=== PATIENT | male | born 1965 | race Caucasian/White ===

== ENCOUNTER 2016-11-18 16:24 | Inpatient (IN) | payer OTHER ==
[~2016-11-18] VITALS: Ht 177.8 cm; Wt 83.0 kg
--- NOTE | 2016-11-18 16:24 | NUR ---
Patient BIBA ACLS, transferred to bed 3. RN evaluating patient at bedside.
[2016-11-18] MEDS ORDERED: HALOPERIDOL IM 5 MG/ML VIAL ONE (16:25)
[2016-11-18] MEDS ORDERED: LORazepam 2 MG/ML VIAL ONE (16:26)
[2016-11-18] MEDS ORDERED: diphenhydrAMINE 50 MG/ML VIAL ONE (16:27)
[2016-11-18 16:35] VITALS: BP 119/78
--- NOTE | 2016-11-18 16:35 | NUR ---
PATIENT KHANG PRESENTS TO ED WITH C/O ALTERED COMBATIVE, METH USE--PT WAS IN HIS APT BULDING WHEN FOUND ALTERED.PT NONVERBAL AT THIS TIME; SKIN IS PINK/WARM/DRY; AAOX4 WITH EVEN AND STEADY GAIT; LUNGS CLEAR BL; HR EVEN AND REGULAR; PT DENIES ANY FEVER, CP, SOB, OR COUGH AT THIS TIME; PATIENT STATES PAIN OF 0/10 AT THIS TIME; VSS; PATIENT POSITIONED FOR COMFORT; HOB ELEVATED; BEDRAILS UP X2; BED DOWN. ER MD MADE AWARE OF PT STATUS.
[2016-11-18] MEDS ORDERED: NACL 0.9% 4,000 ML IV ONE (16:45)
[2016-11-18 16:46] LABS: BASOPHILS # (AUTO) 0.1 K/uL (0.00-0.22); BASOPHILS % (AUTO) 1.3 % (0.0-2.0); EOSINOPHILS # (AUTO) 0.1 K/uL (0-0.4); EOSINOPHILS % (AUTO) 1.1 % (0.0-4.0); HEMATOCRIT 44.7 % (36-52); HEMOGLOBIN 14.9 g/dL (12.0-18.0); LYMPHOCYTES # (AUTO) 1.3 K/uL (2.0-11.5); LYMPHOCYTES % (AUTO) 12.1 % (20.5-51.1); MEAN CORPUSCULAR HEMOGLOBIN 28 pg (27-31); MEAN CORPUSCULAR HGB CONC 33 g/dL (33-37); MEAN CORPUSCULAR VOLUME 84 fL (80-94); MONOCYTES # (AUTO) 0.8 K/uL (0.8-1.0); MONOCYTES % (AUTO) 7.6 % (1.7-9.3); NEUTROPHILS # (AUTO) 8.7 K/uL (1.8-7.7); NEUTROPHILS % (AUTO) 77.9 % (42.2-75.2); PLATELET COUNT (AUTO) 385 K/uL (140-450); RED BLOOD CELL COUNT(AUTO) 5.33 MIL/uL (4.20-6.10); RED CELL DISTRIBUTION WIDTH 12.7 % (11.6-13.7)
[2016-11-18 16:57] LABS: ANION GAP 19.9 (8-16); CALCIUM 8.9 mg/dL (8.5-10.1); CARBON DIOXIDE 25.2 mmol/L (21-32); CHLORIDE 99 mmol/L (98-107); CREATININE 1.6 mg/dL (0.6-1.3); GFR ARICAN-AMERICAN 59 mL/min (>90); GFR NON ARICAN-AMERICAN 49 mL/min (>90); GLUCOSE 120 mg/dL (74-106); POTASSIUM 3.1 mmol/L (3.5-5.1); SODIUM SERUM 141 mmol/L (136-145); UREA NITROGEN, BLOOD 13 mg/dL (7-18)
[2016-11-18] MEDS ORDERED: diphenhydrAMINE 50 MG/ML VIAL IM ONE (17:00)
[2016-11-18] MEDS ORDERED: LORazepam 2 MG/ML VIAL IM ONE (17:00)
[2016-11-18] MEDS ORDERED: HALOPERIDOL IM 5 MG/ML VIAL IM ONE (17:00)
[2016-11-18 17:04] LABS: ALANINE AMINOTRANSFERASE 45 U/L (12-78); ALBUMIN 4.3 g/dL (3.4-5.0); ALCOHOL, BLOOD < 3 mg/dL (<3); ALKALINE PHOSPHATASE 74 U/L (46-116); ASPARTATE AMINOTRANSFERASE 48 U/L (15-37); SALICYLATE 2.8 mg/dL (2.8-20.0); TOTAL BILIRUBIN 0.8 mg/dL (0.0-1.0)
[2016-11-18 17:05] LABS: ACETAMINOPHEN < 0.5 ug/ml (10-30)
[2016-11-18 17:22] LABS: CREATINE KINASE, TOTAL 1391 U/L (39-308)
--- NOTE | 2016-11-18 18:01 | NUR ---
PT TAKEN TO CT VIA GURNEY BY BALL RACKER ERICKA
--- NOTE | 2016-11-18 18:11 | NUR ---
PT BACK FROM CT PLACE BACK ON MONITOR, PT STILL UNABLE TO FOLLOW COMMANDS
[2016-11-18 18:31] LABS: APPEARANCE,URINE CLEAR (CLEAR); BILIRUBIN,URINE NEGATIVE (NEGATIVE); BLOOD, URINE NEGATIVE (NEGATIVE); COLOR,URINE YELLOW (YELLOW); LEUKOCYTE ESTERASE ,URINE NEGATIVE (NEGATIVE); NITRITE, URINE NEGATIVE (NEGATIVE); PROTEIN,URINE 1+ (NEGATIVE); UGLUCOSE NEGATIVE (NEGATIVE); UROBILINOGEN,URINE 0.2 EU/dL (0.2 - 1)
[2016-11-18 18:37] LABS: AMPHETAMINE, URINE POS. ng/ml (NEG <=1000); BARBITURATE, URINE NEG. ng/ml (NEG <=200); BENZODIAZEPINE, URINE POS. ng/mL (NEG <=200); CANNABINOID, URINE NEG. ng/mL (NEG <=50); COCAINE, URINE NEG. ng/mL (NEG <=300); OPIATE, URINE NEG. ng/mL (NEG <=2000); PHENCYCLIDINE SCREEN,URINE NEG. ng/mL (NEG <=25)
[2016-11-18 18:52] LABS: BACTERIA,URINE FEW /HPF (None Seen); RBC,URINE NONE SEEN /HPF (0-5); SQUAMOUS EPITHELIAL CELL,UR None Seen /LPF (0-3 (FEW)); WBC,URINE 0-5 (RARE) /HPF (0-5)
--- NOTE | 2016-11-18 19:12 | NUR ---
REPORT GIVEN TO OLINDA JENKINS
--- NOTE | 2016-11-18 19:20 | NUR ---
Patient appears to be resting comfortably in bed. Vital Signs within normal limits. Respirations even and unlabored. Addendum: 11/18/16 at 2000 by TRAY Patient appears to be resting comfortably in bed. Vital Signs within normal limits. Respirations even and unlabored, SKIN IS INTACT
--- NOTE | 2016-11-18 19:54 | NUR ---
Pt report given to BELEN PRAKASH . Transfer of care at this time.
--- NOTE | 2016-11-18 19:55 | NUR ---
Patient will be admitted to care of DR MARTINO. Admited to ICU 5. Will go to room ICU 5. Belongings list completed. Report to BELEN PRAKASH .
--- NOTE | 2016-11-18 20:15 | NUR ---
PT ARRIVED ON UNIT FROM ER VIA GURNEY CONNECTED TO ALL MONITOR PT IS DROWSY, BUT ABLE TO FOLLOW TO ALL COMMANDS. PT IS ON ROOM AIR AND IS CURRENTLY SATURATING 100% WITH NO S/S OF RESPIRATORY DISTRESS NOTED. CARE TRANSITIONS MANAGER SHOWS SR AT THIS TIME. HAS IV IN LAC#20 CURRENTLY SALINE LOCKED. SKIN IS INTACT, WITH OLD SCAR NOTED ON LOWER BACK. PT SKIN IS WARM. BED IN LOW POSITION. HOB UP. CALL LIGHT LEFT WITHIN REACH. WILL CONTINUE TO MONITOR.
[2016-11-18 20:17] VITALS: BP 143/77
--- NOTE | 2016-11-18 20:30 | NUR ---
EMPTIED OUT 15OO ML OF CLEAR YELLOW URINE FROM ASTUDILLO CATHETER. PT IS ABLE TO FOLLOW COMMANDS SUCH TURNING AND MOVING EXTREMITIES, BUT IS UNABLE TO ANSWER QUESTIONS ABOUT PATIENT HISTORY DUE TO CURRENT CONDITION OF DROWSINESS.
[2016-11-18] MEDS ORDERED: ONDANSETRON 4 MG/2 ML VIAL IVP PRN (21:00)
[2016-11-18] MEDS ORDERED: ACETAMINOPHEN 325 MG TAB PO PRN (21:00)
[2016-11-18] MEDS ORDERED: ALBUTEROL 0.083% 2.5 MG/3 ML NEBU INH PRN (21:00)
--- NOTE | 2016-11-18 21:27 | NUR ---
RECEIVED PHONE CALL FROM WOMEN STATING TO BE THE PATIENT'S FIANCE. NO NEXT OF KIN IS LISTED ON PATIENT'S CHART AT THIS TIME. MOHIT JORDAN IS ON THE UNIT AND STATED FOR PATIENT TO VERIFY RELATIONSHIP OF CALLER BEFORE GIVING ANY INFORMATION OVER THE PHONE. WILL FOLLOW UP.
--- NOTE | 2016-11-18 21:28 | NUR ---
KAREY HILDA CALLED THE UNIT AND IS ASKING FOR UPDATE ABOUT PATIENT. KAREY STATES SHE IS PT'S FIANCE. ASKED PATIENT FOR VERIFICATION ABOUT KAREY'S RELATION TO PATIENT. PT COULD NOT GIVE CONFIRMATION AT THIS TIME DUE TO CURRENT CONDITION OF DROWSINESS. KAREY LEFT PHONE NUMBER AND STATED TO GIVE HER A CALL AT ANYTIME WHEN PATIENT CAN VERIFY HER RELATIONSHIP.
[2016-11-18] MEDS: NACL 0.9% 1,000 ML IV SCH (21:47)
--- NOTE | 2016-11-18 21:56 | NUR ---
PT HAD MODERATE AMOUNT OF BROWN BM AT THIS TIME. PT CLEANED, GOWN CHANGED. WILL CONTINUE TO CLOSELY MONITOR
[2016-11-18 22:00] VITALS: BP 142/84
[2016-11-19] VITALS (8 sets, daily range): BP systolic 111–173; BP diastolic 66–97
--- NOTE | 2016-11-19 00:24 | NUR ---
PT RESTING IN BED. NO SOB NOTED AT THIS TIME. WILL CONTINUE TO CLOSELY MONITOR.
--- NOTE | 2016-11-19 02:41 | NUR ---
PT LEADS CHANGED DUE TO BEING UNABLE TO READ PROPERLY ON MONITOR. NO SOB NOTED AT THIS TIME. SAFETY PRECAUTIONS STILL MAINTAINED. CALL LIGHT LEFT WITHIN REACH. WILL CONTINUE TO CLOSELY MONITOR.
--- NOTE | 2016-11-19 04:40 | NUR ---
PT RESTING IN BED. NO SOB NOTED AT THIS TIME. WILL CONTINUE TO CLOSELY MONITOR.
[2016-11-19 05:06] LABS: BASOPHILS # (AUTO) 0.1 K/uL (0.00-0.22); BASOPHILS % (AUTO) 1.5 % (0.0-2.0); EOSINOPHILS # (AUTO) 0.1 K/uL (0-0.4); EOSINOPHILS % (AUTO) 1.1 % (0.0-4.0); HEMATOCRIT 43.3 % (36-52); HEMOGLOBIN 14.7 g/dL (12.0-18.0); LYMPHOCYTES # (AUTO) 2.1 K/uL (2.0-11.5); LYMPHOCYTES % (AUTO) 23.7 % (20.5-51.1); MEAN CORPUSCULAR HEMOGLOBIN 28 pg (27-31); MEAN CORPUSCULAR HGB CONC 34 g/dL (33-37); MEAN CORPUSCULAR VOLUME 83 fL (80-94); MONOCYTES % (AUTO) 11.4 % (1.7-9.3); NEUTROPHILS # (AUTO) 5.5 K/uL (1.8-7.7); NEUTROPHILS % (AUTO) 62.3 % (42.2-75.2); PLATELET COUNT (AUTO) 309 K/uL (140-450); RED BLOOD CELL COUNT(AUTO) 5.22 MIL/uL (4.20-6.10); RED CELL DISTRIBUTION WIDTH 13.3 % (11.6-13.7); WHITE BLOOD COUNT (AUTO) 8.8 K/uL (4.8-10.8)
--- NOTE | 2016-11-19 07:25 | NUR ---
RECEIVED REPORT FROM PM SHIFT CHARGE NURSE AT BEDSIDE. PT ASLEEP AT THIS TIME. AROUSED BY VOICE. AWAKE AND ALERT TO NAME, TIME, DATE, AND SITUATION. BREATHING EVEN & UNLABORED. NO ACUTE DISTRESS NOTED. LEFT AC #20G IV ACCESS INTACT AND PATENT WITH NS INFUSING @ 100 ML/HR. ASTUDILLO CATH IN PLACE WITH YELLOW COLORED 200 CC URINE TO GRAVITY. ABDOMEN SOFT, NON DISTENDED WITH ACTIVE BOWEL SOUNDS IN ALL 4 QUADRANTS. INTACT SKIN. OLD SCAR ON THE LOWER BACK NOTED. PLAN OF CARE DISCUSSED WITH PT AND VERBALIZED UNDERSTANDING. ALL SAFETY MEASURES MAINTAINED. CALL LIGHT WITHIN REACH.
[2016-11-19] MEDS: NACL 0.9% 1,000 ML IV SCH ×3 (07:48→20:12)
--- NOTE | 2016-11-19 07:49 | NUR ---
PATIENT HAS BEEN SCREENED AND CATEGORIZED MODERATE NUTRITION RISK. PATIENT WILL BE SEEN WITHIN 3-5 DAYS OF ADMISSION. 11/21/16-11/23/[address]
[2016-11-19 08:44] LABS: ANION GAP 14.3 (8-16); CALCIUM 7.9 mg/dL (8.5-10.1); CARBON DIOXIDE 24.2 mmol/L (21-32); CREATININE 0.9 mg/dL (0.6-1.3); POTASSIUM 3.5 mmol/L (3.5-5.1)
--- NOTE | 2016-11-19 09:45 | NUR ---
CALLED DR. GUERIN AND INFORMED TO DR. GUERIN REGARDING TO PT'S CURRENT CLINICAL STATUS. RECEIVED ORDERS AND CARRIED OUT. PER DR. GUERIN, HE WILL SEE PT TODAY.
--- NOTE | 2016-11-19 10:30 | NUR ---
EMPTIED 300 CC URINE FROM ASTUDILLO CATHETER. DC'D F/C ORDERED AND TOLERATED WELL BY PT. TIP OF ASTUDILLO CATH INTACT AND NO BLEEDING NOTED. CALL LIGHT WITHIN REACH.
--- NOTE | 2016-11-19 12:35 | NUR ---
DR. GUERIN IN TO SEE PT. UPDATED TO WITH PT'S CURRENT STATUS. WILL FOLLOW UP WITH ORDERS.
--- NOTE | 2016-11-19 13:43 | NUR ---
PAGED DR. GUERIN FOR HOLDING DISCHARGE ORDER. PER DIRECTOR OF SURGERY, NORA, PT IS HAVING SUICIDAL THOUGHTS AND HAS A PLAN OF TAKING PAIN PILLS AND SLEEPING PILLS WHEN D/C HOME TODAY. AWAITED FOR CALL BACK.
--- NOTE | 2016-11-19 13:57 | NUR ---
FAXED INITIAL REVIEW TO [facility] [phone] PHONE AHNSEL [phone] [id number]
--- NOTE | 2016-11-19 14:10 | NUR ---
DR. TORRES CALLED BACK AND EXPLAINED TO DR. TORRES ABOUT PT'S SUICIDAL THOUGHTS. RECEIVED ORDER FOR PSYCH EVALUATION.
--- NOTE | 2016-11-19 15:00 | NUR ---
DR. BARTON AWARE PSYCH CONSULT.
[2016-11-19] MEDS: MORPHINE SULFATE 4 MG/ML SYR IVP PRN (16:05)
--- NOTE | 2016-11-19 16:10 | NUR ---
DR. JACKSON INTERVIEWED PT AT BEDSIDE.
--- NOTE | 2016-11-19 18:00 | NUR ---
PT EATING DINNER AT THIS TIME. NO C/O PAIN OR DISCOMFORT NOTED. ALL NEEDS MET. CALL LIGHT WITHIN REACH.
--- NOTE | 2016-11-19 19:05 | NUR ---
REPORT GIVEN TO ABSORBER OPERATOR RN FOR CONTINUITY OF CARE.
--- NOTE | 2016-11-19 20:00 | NUR ---
AAOX4, SR ON THE MONITOR, ON ROOM AIR, IVF NS 100 ML/HR, IV SITE ON RFA G#22, VOIDING WITHOUT DIFFICULTIES. SKIN INTACT, DENIES PAIN. PATIENT VERY PLEASANT AND COOPERATIVE WITH CARE.
[2016-11-19] MEDS: LORazepam 2 MG/ML VIAL IVP PRN (20:57)
--- NOTE | 2016-11-19 22:00 | NUR ---
PATIENT SLEEPING, SR ON THE MONITOR, MONITORED CLOSELY.
--- NOTE | 2016-11-20 | NUR ---
PATIENT RESTING WELL, CONTINUE TO MONITOR CLOSELY, DENIES PAIN, REFUSED BP AND PULSE OXIMETER READING.
[2016-11-20] MEDS: LORazepam 2 MG/ML VIAL IVP PRN (01:22)
[2016-11-20 01:24] VITALS: BP 114/76
[2016-11-20 04:00] VITALS: BP 120/82
--- NOTE | 2016-11-20 04:08 | NUR ---
RECEIVED REPORT FROM BHUMIKA/ICU FORMER HAND TO TRANSFER PATIENT TO [facility], CALLED [facility] AND GAVE REPORT TO OLINDA PATINO. PATIENT INFORMED THAT HE WILL BE TRANSFERRED TO [facility]. DENIES PAIN, VS STABLE.
--- NOTE | 2016-11-20 04:20 | NUR ---
PATIENT WAS TRANSFERRED TO [address] AT THIS TIME, ENDORSED PATIENT TO CAREY/RN WITH ALL OF PATIENT'S BELONGINGS. PATIENT IN STABLE CONDITION.
[2016-11-20 04:22] VITALS: BP 123/75
--- NOTE | 2016-11-20 04:22 | NUR ---
PT ARRIVED ON UNIT IN STABLE CONDITION WITH ALL BELONGINGS. NO SOB, NO SIGNS OF DISTRESS. PT IS AOX4, AMBULATORY, SPEAKS SAMI. PT HAS NO THOUGHTS OF HARMING HIMSELF OR OTHERS AT THIS TIME. SKIN IS INTACT. 1:1 SITTER AT BEDSIDE. VS STABLE ON ROOM AIR. IV TO RT FA 22G PATENT, ASYMPTOMATIC, INTACT, IVF RUNNING. PT DENIES PAIN AT THIS TIME. ORIENTED PT TO ROOM AND UNIT. PLAN OF CARE DISCUSSED WITH PT. SAFETY MEASURES IN PLACE. CALL LIGHT WITHIN REACH. WILL CONTINUE TO MONITOR.
--- NOTE | 2016-11-20 07:30 | NUR ---
RECEIVED PT IN BED, ASLEEP. BREATHING EVEN AND UNLABORED. NO SIGNS AND SYMPTOMS OF ACUTE DISTRESS. SAFETY PRECAUTION IN PLACE. CALL LIGHT WITHIN REACH.
--- NOTE | 2016-11-20 07:30 | NUR ---
ENDORSED PT IN STABLE CONDITION TO CARLEEN Ryan RN. ALL NEEDS HAVE BEEN MET AT THIS TIME.
[2016-11-20 08:00] VITALS: BP 122/75
[2016-11-20] MEDS: MORPHINE SULFATE 4 MG/ML SYR IVP PRN (09:20)
--- NOTE | 2016-11-20 09:46 | NUR ---
SS NOTE: SENT PSYCH PLACEMENT INQUIRIES TO: - [facility] - [facility] - [facility]
--- NOTE | 2016-11-20 09:55 | NUR ---
PT ABLE TO DO ADL'S INDEPENDENTLY. ACTIVITY TOLERATED WELL. PT STATED HE IS NOT ANYMORE THINKING OF HARMING HIMSELF OR OTHERS. NO SUICIDAL THOUGHTS NOTED AT THIS TIME. WILL CONTINUE TO MONITOR.
--- NOTE | 2016-11-20 10:10 | NUR ---
AJIT FROM [facility] ([facility]) CALLED AND ASKED WHO WROTE THE 5150 HOLD ON PT'S CHART. AJIT STATED SHE WILL CALL BACK IF THEY DECIDE TO TAKE THE PT.
--- NOTE | 2016-11-20 11:00 | NUR ---
PT VERBALIZED HE IS READY TO GO HOME AND WOULD LIKE TO SIGN AGAINST MEDICAL FORM. RISKS AND BENEFITS EXPLAINED TO PT, VERBALIZED UNDERSTANDING. ELGIN DIRECTOR OF CASE MANAGEMENT MADE AWARE AND SPOKE WITH PT.
--- NOTE | 2016-11-20 11:05 | NUR ---
PAGED DR. MARTINO TO MAKE HIM AWARE OF PT'S DECISION TO GO AMA, AWAITING FOR CALL BACK FROM HYDROGRAPHICAL TECHNICAL OFFICER DR. GUERIN.
--- NOTE | 2016-11-20 11:10 | NUR ---
PT SIGNED AGAINST MEDICAL ADVICE FORM, RISKS AND BENEFITS EXPLAINED, PT VERBALIZED UNDERSTANDING.
--- NOTE | 2016-11-20 11:15 | NUR ---
ARM BANDS AND IV REMOVED, CANNULA TIP INTACT. PLANTING MATERIAL UNLOADER NURSE AND ICT QUALITY ASSURANCE ENGINEER MADE AWARE.
--- NOTE | 2016-11-20 11:25 | NUR ---
PT ESCORTED OUT IN STABLE CONDITION BY BY SOLID STATE TESTER. PT AMBULATORY. NO SOB NOTED. NO C/O PAIN AT THIS TIME. NO SUICIDAL IDEATION NOTED. PT IS DISCHARGED AGAINST MEDICAL ADVICE.
--- NOTE | 2016-11-20 12:02 | NUR ---
1100 MET WITH PT AND HE STATED THAT HE WANTS TO GO HOME. PT CALM AND STATED THAT HE DID NOT WANT TO HARM HIMSELF AND SAID THAT HE ONLY MADE THE STATEMENT IN RETALIATION AFTER HE AND HIS GIRLFRIEND GOT INTO AN ARGUMENT. DISCUSSED WITH PT THAT STAFF MUST REPORT IF ANYONE VERBALIZES SUICIDAL IDEATION AND THAT IT IS TAKEN SERIOUSLY. PT DID APOLOGIZE AND STATED THAT HE UNDERSTANDS THAT IT WAS WRONG OF HIM TO DO SO. ASKED PT IF HE HAS HAD ANY TYPE OF COUNSELING AND HE INDICATED THAT HE DID HAVE AN APPT TO SEE A COUNSELING SERVICE BUT NEVER GOT TO SEE ANYONE THE PERSON HE WAS SCHEDULED TO SEE WAS NO LONGER THERE. HE STATED THAT THE ADDRESS WAS ON [address] IN [place] AND THAT HE STILL HAD THE CARD AND WOULD MAKE A FOLLOW UP CALL. AT THIS TIME THERE IS NO ACTUAL 5150 WRITTEN AND PT HAS OPTED TO SIGN AMA RATHER THAN WAIT FOR RE-EVALUATION BY PSYCHOLOGIST.
--- NOTE | 2016-11-20 13:00 | NUR ---
DR. GUERIN IS HERE MAKING ROUNDS AND MADE AWARE OF PT WENT AMA.
--- NOTE | 2016-11-20 14:11 | NUR ---
CM NOTE CONCURRENT REVIEW FAXED TO [facility] / FAX# [phone], ATTN: HANSEL #[phone] [id number]
== END 2016-11-20 11:25 | disposition left against medical advice (07) | DRG 812 ==
LOC: MED 16:24 → MIC 19:17 → MTU 11-20 04:25
PROVIDERS: ADMIT Internal Medicine Pulmonary Disease; ATTEND Internal Medicine Pulmonary Disease
DX: T43.621A Poisoning by amphetamines, accidental (unintentional), initial encounter (principal); G93.41 Metabolic encephalopathy; N17.9 Acute kidney failure, unspecified; M62.82 Rhabdomyolysis; F33.2 Major depressive disorder, recurrent severe without psychotic features; F17.210 Nicotine dependence, cigarettes, uncomplicated; F15.20 Other stimulant dependence, uncomplicated; E86.0 Dehydration; Z53.21 Procedure and treatment not carried out due to patient leaving prior to being seen by health care provider; R45.851 Suicidal ideations; R44.3 Hallucinations, unspecified; Z56.0 Unemployment, unspecified; Y92.89 Other specified places as the place of occurrence of the external cause
CPT/HCPCS: 36415; 51702; 70450; 71010; 80048; 80053; 80305; 81001; 82550; 82553; 82948; 83735; 85025; 87081; 93005; 96360; 96361; 96372; 99285; G0480; G0482; J1200; J1630; J2060; J2270; J7030; Q0092

== ENCOUNTER 2017-04-24 16:29 | Emergency (ER) | payer OTHER ==
[~2017-04-24] VITALS: Ht 177.8 cm; Wt 80.3 kg
[2017-04-24 16:30] VITALS: BP 136/74
[2017-04-24] MEDS ORDERED: NACL 0.9% 1,000 ML IV ONE (16:30)
--- NOTE | 2017-04-24 16:31 | NUR ---
Pt placed in bed 7 by EMS.
[2017-04-24 16:45] LABS: BASOPHILS # (AUTO) 0.1 K/uL (0.00-0.22); BASOPHILS % (AUTO) 1.4 % (0.0-2.0); EOSINOPHILS # (AUTO) 0.1 K/uL (0-0.4); EOSINOPHILS % (AUTO) 1.1 % (0.0-4.0); HEMATOCRIT 45.5 % (36-52); HEMOGLOBIN 14.7 g/dL (12.0-18.0); LYMPHOCYTES # (AUTO) 2.2 K/uL (2.0-11.5); LYMPHOCYTES % (AUTO) 33.8 % (20.5-51.1); MEAN CORPUSCULAR HEMOGLOBIN 27 pg (27-31); MEAN CORPUSCULAR HGB CONC 32 g/dL (33-37); MEAN CORPUSCULAR VOLUME 83 fL (80-94); MONOCYTES # (AUTO) 0.3 K/uL (0.8-1.0); MONOCYTES % (AUTO) 5.1 % (1.7-9.3); NEUTROPHILS # (AUTO) 3.7 K/uL (1.8-7.7); NEUTROPHILS % (AUTO) 58.6 % (42.2-75.2); PLATELET COUNT (AUTO) 361 K/uL (140-450); RED BLOOD CELL COUNT(AUTO) 5.48 MIL/uL (4.20-6.10); RED CELL DISTRIBUTION WIDTH 15.2 % (11.6-13.7); WHITE BLOOD COUNT (AUTO) 6.4 K/uL (4.8-10.8)
[2017-04-24] MEDS ORDERED: GABA300C PO (16:46)
[2017-04-24] MEDS ORDERED: ALPR1TAB2 PO (16:46)
[2017-04-24] MEDS ORDERED: OXYC40TE66 PO (16:46)
[2017-04-24] MEDS ORDERED: ZOLP10TA1 PO (16:46)
[2017-04-24] MEDS ORDERED: KETO75CA PO (16:46)
[2017-04-24] MEDS ORDERED: SERT50TA PO (16:46)
[2017-04-24] MEDS ORDERED: BUS5 PO (16:46)
[2017-04-24] MEDS ORDERED: LANS15EC28 PO (16:46)
[2017-04-24] MEDS ORDERED: BACL10TA4 PO (16:46)
[2017-04-24] MEDS ORDERED: QUET100T PO (16:46)
--- NOTE | 2017-04-24 16:47 | NUR ---
51/M heidya from home for evaluation of suicidal ideation and attempt. Per EMS, patient took unknown amount of ambien and xanax. Pt states "I'm tired of being in pain. I don't want to be alive in pain anymore." Pt was placed on a 5150 for danger to self. Pt is AOX4, slurred speech, obeys commands, follows instructions. Calm and cooperative at this time. Hx chronic back pain, ambulates with a front wheel walker. Pt states he lives at home with "roomate/girlfriend." Pt placed into a gown, placed on biomedical engineer, pulse oximetry and blood pressure monitoring. All belongings placed into a belongings bag and set aside. VSS.
[2017-04-24 17:02] LABS: ACETAMINOPHEN < 0.5 ug/ml (10-30); ALBUMIN 3.6 g/dL (3.4-5.0); ANION GAP 14.6 (8-16); ASPARTATE AMINOTRANSFERASE 26 U/L (15-37); CARBON DIOXIDE 25.1 mmol/L (21-32); CHLORIDE 112 mmol/L (98-107); CREATININE 0.9 mg/dL (0.7-1.3); GFR ARICAN-AMERICAN 115 mL/min (>90); GLUCOSE 95 mg/dL (74-106); POTASSIUM 3.7 mmol/L (3.5-5.1); SALICYLATE 4.2 mg/dL (2.8-20.0); SODIUM SERUM 148 mmol/L (136-145); TOTAL BILIRUBIN 0.2 mg/dL (0.0-1.0); UREA NITROGEN, BLOOD 14 mg/dL (7-18)
--- NOTE | 2017-04-24 17:20 | NUR ---
Patient appears to be resting comfortably in bed. VSS.
--- NOTE | 2017-04-24 17:41 | NUR ---
Security at bedside for belongings check. Belongings taken by Ramone in security.
--- NOTE | 2017-04-24 17:47 | NUR ---
Pt unable to void at this time. Dr. Castillo verbal order for straight cath insertion.
--- NOTE | 2017-04-24 18:00 | NUR ---
# 14 FR IN AND OUT catheter utilizing sterile technique. Immediate return of 100 ml DARK YELLOW urine noted. Bedside drainage bag placed below level of bladder. Urine sample collected and sent to lab. Pt tolerated procedure WELL.
--- NOTE | 2017-04-24 18:17 | NUR ---
Pt resting comfortably. No distress noted. VSS. Pt lying right side lateral.
[2017-04-24 18:25] LABS: APPEARANCE,URINE CLEAR (CLEAR); BILIRUBIN,URINE NEGATIVE (NEGATIVE); BLOOD, URINE NEGATIVE (NEGATIVE); COLOR,URINE YELLOW (YELLOW); LEUKOCYTE ESTERASE ,URINE NEGATIVE (NEGATIVE); NITRITE, URINE NEGATIVE (NEGATIVE); UGLUCOSE NEGATIVE (NEGATIVE)
[2017-04-24 18:33] LABS: BARBITURATE, URINE NEG. ng/ml (NEG <=200); BENZODIAZEPINE, URINE POS. ng/mL (NEG <=200); CANNABINOID, URINE NEG. ng/mL (NEG <=50); COCAINE, URINE NEG. ng/mL (NEG <=300); OPIATE, URINE NEG. ng/mL (NEG <=2000); PHENCYCLIDINE SCREEN,URINE NEG. ng/mL (NEG <=25)
--- NOTE | 2017-04-24 18:53 | NUR ---
Pt resting comfortably, sleeping. No distress noted. VSS.
--- NOTE | 2017-04-24 19:32 | NUR ---
Pt calm and relaxex, resting comfortably. Lying supine. VSS. Warm blanket provided. All needs addressed.
--- NOTE | 2017-04-24 20:35 | NUR ---
Pt had a bowel movement, loose stool, yellow brown in color. [place] care performed. New sheets applied to bed and a new gown placed on patient. Pt tolerated well. VSS.
--- NOTE | 2017-04-24 20:45 | NUR ---
Water provided. All needs addressed.
[2017-04-24] MEDS ORDERED: KETOROLAC 30 MG/ML VIAL IVP ONE (20:50)
--- NOTE | 2017-04-24 21:23 | NUR ---
Patientr resting comfortably in bed. VSS.
--- NOTE | 2017-04-24 22:39 | NUR ---
Nurse to nurse report given to Krystyna at [facility]. Krystyna RN to speak with supervisor blast furnace auxiliaries and will call back.
--- NOTE | 2017-04-24 23:23 | NUR ---
Krystyna from [facility] called back, accepting physician is Dr. Guzman. Krystyna is requesting to have patient be picked up 0600 and transferred.
[2017-04-24] MEDS ORDERED: MORPHINE SULFATE 4 MG/ML SYR IVP ONE (23:30)
--- NOTE | 2017-04-24 23:36 | NUR ---
Pt updated about his status being transferred to [facility] at 0600. I also advised the patient his gf called. Pt verbalized understanding.
--- NOTE | 2017-04-24 23:49 | NUR ---
Patient resting comfortably in bed. VSS. Warm blanket provided. Pt offered food. Pt states "Maybe later." Lights dimmed in room.
--- NOTE | 2017-04-24 23:52 | NUR ---
Pt requesting meal tray. church supervisor called for tray.
--- NOTE | 2017-04-25 01:09 | NUR ---
Pt report given to Cliff PRAKASH. Transfer of care at this time.
--- NOTE | 2017-04-25 01:09 | NUR ---
Patient appears to be resting comfortably in bed. Vital Signs within normal limits. Respirations even and unlabored.
--- NOTE | 2017-04-25 02:07 | NUR ---
Patient appears to be resting comfortably in bed. Vital Signs within normal limits. Respirations even and unlabored.
[2017-04-25] MEDS ORDERED: MORPHINE SULFATE 4 MG/ML SYR IVP ONE (02:30)
--- NOTE | 2017-04-25 03:08 | NUR ---
Patient appears to be resting comfortably in bed. Vital Signs within normal limits. Respirations even and unlabored.
--- NOTE | 2017-04-25 04:02 | NUR ---
Patient appears to be resting comfortably in bed. Vital Signs within normal limits. Respirations even and unlabored.
--- NOTE | 2017-04-25 05:07 | NUR ---
Patient appears to be resting comfortably in bed. Vital Signs within normal limits. Respirations even and unlabored.
--- NOTE | 2017-04-25 06:04 | NUR ---
Patient appears to be resting comfortably in bed. Vital Signs within normal limits. Respirations even and unlabored.
--- NOTE | 2017-04-25 06:15 | NUR ---
TRANSPORT WILL BE DELAYED BY 69 MINS
--- NOTE | 2017-04-25 07:02 | NUR ---
Pt report given to GARY. Transfer of care at this time.
--- NOTE | 2017-04-25 07:05 | NUR ---
RECEIVED REPORT FROM OLINDA JENKINS. Patient appears to be resting comfortably in bed. Vital Signs within normal limits. Respirations even and unlabored.WILL CONTINUE TO MONITOR.
--- NOTE | 2017-04-25 07:15 | NUR ---
Note christofer in EDM - 04/25/17 at 0716 by TRAY RECEIVED REPORT FROM OLINDA JENKINS. Patient appears to be resting comfortably in bed. Vital Signs within normal limits. Respirations even and unlabored.WILL CONTINUE TO MONITOR.
[2017-04-25] MEDS ORDERED: KETOROLAC 60 MG/2 ML VIAL IM ONE ×2 (07:25→07:36)
--- NOTE | 2017-04-25 07:28 | NUR ---
[facility] HERE TO HUMAN CAPITAL ANALYST PATIENT.
--- NOTE | 2017-04-25 07:38 | NUR ---
Patient to be transferred to [facility]. Is being transferred due to HIGH LEVEL. Receiving facility has accepting physician and available space. ER physician has signed transfer form. Patient or responsible republican has agreed to transfer and signed form. Patient belongings inventoried and will be sent with patient. Copy of nursing notes, lab reports, EKG, Physicians Orders and X-rays to be sent with patient. Report called to OLINDA ROJAS at receiving facility. EMT ambulance service has been called for transfer.
[2017-04-25 07:39] VITALS: BP 137/88
== END 2017-04-25 07:38 ==
LOC: MED 16:29
DX: F10.129 Alcohol abuse with intoxication, unspecified (principal); R45.851 Suicidal ideations; T65.91XA Toxic effect of unspecified substance, accidental (unintentional), initial encounter; Y92.89 Other specified places as the place of occurrence of the external cause; F32.9 Major depressive disorder, single episode, unspecified
CPT/HCPCS: 36415; 80053; 80305; 81003; 85025; 93005; 96361; 96374; 96375; 96376; 99285; C1758; G0480; G0482; J1885; J2270; J7030

== ENCOUNTER 2017-10-19 17:45 | Inpatient (IN) | payer MEDICAID, OTHER ==
[~2017-10-19] VITALS: Ht 175.3 cm; Wt 81.6 kg
[2017-10-19 17:45] VITALS: BP 123/80
[~2017-10-19 17:45] MED LIST: ALPR1TAB2 PO; BACL10TA4 PO; BUS5 PO; GABA300C PO; KETO75CA PO; LANS15EC28 PO; OXYC40TE66 PO; QUET100T PO; SERT50TA PO; ZOLP10TA1 PO
--- NOTE | 2017-10-19 17:45 | NUR ---
52M BIBA FROM HOME C/O HALLUCINATIONS X TODAY; PT STATES " PLEASE HELP ME. ANIMALS ARE TRYING TO KILL ME"; PER [facility], PT CALLED 911 FROM HOME NEEDING HELP; ASKED PT IF HE HAS ANY IDEAS OF HURTING SELF OR OTHERS, PT STATES "NO" AT THIS TIME. PT C/O ACHING BODY ACHES TO "MY WHOLE BODY", 06/03 AT THIS TIME; PT STATES FIRST NAME BUT STATES, BUT UNABLE TO VERBALIZE BIRTHDAY AT THIS TIME; UNABLE TO ASSESS PUPILS, PT CLOSING EYES AND STATES "DON'T TOUCH ME" AT THIS TIME; PT STATES " AM I GOING TO A BED YET" WHILE CLOSING EYES; HX: METH USE; PT POSITIONED COMFORTABLY IN [facility], EVEN/UNLABORED AT THIS TIME; ER MD MADE AWARE OF STATUS. WILL CONTINUE TO MONITOR.
--- NOTE | 2017-10-19 18:49 | NUR ---
PT BIBA TO BED 1.
--- NOTE | 2017-10-19 18:57 | NUR ---
SAVANNAH NICOLAS AT BEDSIDE.
--- NOTE | 2017-10-19 18:58 | NUR ---
PT PLACED ON MONITOR; POSITIONED FOR COMFORT WITH HOB ELEVATED AND IN LOWEST POSITION; PT NOT RESPONDING TO VERBAL OR PAINFUL STIMULI, PT APPEARS TO BE SLEEPING AT THIS TIME; RR EVEN/UNLABORED; ER MD DR. NICOLAS NOTIFIED. WILL CONTINUE TO MONITOR.
--- NOTE | 2017-10-19 19:05 | NUR ---
Pt report given to OLINDA ROTH. Transfer of care at this time.
[2017-10-19] MEDS ORDERED: HALOPERIDOL IM 5 MG/ML VIAL ONE (20:52)
[2017-10-19] MEDS ORDERED: NACL 0.9% 1,000 ML IV ONE (21:08)
[2017-10-19] MEDS ORDERED: HALOPERIDOL IM 5 MG/ML VIAL IM ONE (21:10)
[2017-10-19] MEDS ORDERED: NACL 0.9% 2,000 ML IV ONE (21:10)
[2017-10-19] MEDS ORDERED: LORazepam 2 MG/ML VIAL ONE (21:50)
[2017-10-19 22:53] LABS: BASOPHILS # (AUTO) 0.2 K/uL (0.00-0.22); BASOPHILS % (AUTO) 2.5 % (0.0-2.0); EOSINOPHILS % (AUTO) 0.1 % (0.0-4.0); HEMATOCRIT 42.9 % (36-52); HEMOGLOBIN 14.5 g/dL (12.0-18.0); LYMPHOCYTES # (AUTO) 1.3 K/uL (2.0-11.5); LYMPHOCYTES % (AUTO) 14.1 % (20.5-51.1); MEAN CORPUSCULAR HEMOGLOBIN 28 pg (27-31); MEAN CORPUSCULAR HGB CONC 34 g/dL (33-37); MEAN CORPUSCULAR VOLUME 84 fL (80-94); MONOCYTES % (AUTO) 10.3 % (1.7-9.3); PLATELET COUNT (AUTO) 327 K/uL (140-450); RED BLOOD CELL COUNT(AUTO) 5.12 MIL/uL (4.20-6.10); RED CELL DISTRIBUTION WIDTH 13.9 % (11.6-13.7); WHITE BLOOD COUNT (AUTO) 9.5 K/uL (4.8-10.8)
[2017-10-19 22:57] LABS: ALBUMIN 3.4 g/dL (3.4-5.0); ANION GAP 14.1 (8-16); CARBON DIOXIDE 24.8 mmol/L (21-32); TOTAL BILIRUBIN 0.7 mg/dL (0.0-1.0)
[2017-10-19] MEDS ORDERED: LORazepam 2 MG/ML VIAL IVP ONE (23:05)
[2017-10-19 23:10] LABS: POTASSIUM 2.9 mmol/L (3.5-5.1)
[2017-10-19] MEDS ORDERED: KCL 20 MEQ/WATER INJ PREMIX 100 ML IV ONE (23:15)
[2017-10-19] MEDS ORDERED: NACL 0.9% 1,000 ML IV SCH (23:35)
[2017-10-19] MEDS ORDERED: HYDROcodone/APAP 7.5/325 MG 1 TAB PO PRN (23:35)
[2017-10-19] MEDS ORDERED: ACETAMINOPHEN 325 MG TAB PO PRN (23:35)
[2017-10-19] MEDS ORDERED: ONDANSETRON 4 MG/2 ML VIAL IVP PRN (23:35)
[2017-10-20 00:05] LABS: PROTHROMBIN TIME 12.5 secs (10.8-13.4)
[2017-10-20] MEDS ORDERED: ACETAMINOPHEN 325 MG TAB ONE (00:31)
[2017-10-20 00:32] LABS: CHOL/HDL RATIO 4.6 (1-4.5); FREE T4 (FREE THYROXINE) 1.14 ng/dL (0.76-1.46); MAGNESIUM 2.1 mg/dL (1.8-2.4); PHOSPHORUS 4.4 mg/dL (2.5-4.9); THYROID STIMULATING HORMONE 1.18 uIU/mL (0.34-3.74)
--- NOTE | 2017-10-20 00:40 | NUR ---
Pt escorted to floor via [place]orth branch with Vernon Garcia RN and Bryon FITZPATRICK, vss
--- NOTE | 2017-10-20 00:40 | NUR ---
RECEIVED PT FROM ER VIA MARCIA. AOX1. NO S/S OF DISTRESS NOTED. IV TO LEFT FA #20G, PATENT AND INTACT. ASTUDILLO CATH IN PLACE, DRAINING DARK YELLOW URINE. ORIENTED PT TO ROOM. SAFETY AND SEIZURE PRECAUTION IN PLACE. CALL LIGHT WITHIN REACH. WILL CONTINUE TO MONITOR.
[2017-10-20 00:45] VITALS: BP 97/59
--- NOTE | 2017-10-20 00:51 | NUR ---
Report given and care transfered to Lisa PRAKASH
[2017-10-20 01:14] LABS: BARBITURATE, URINE NEGATIVE ng/ml (NEG <=200); BENZODIAZEPINE, URINE NEGATIVE ng/mL (NEG <=200); CANNABINOID, URINE NEGATIVE ng/mL (NEG <=50); COCAINE, URINE NEGATIVE ng/mL (NEG <=300); OPIATE, URINE NEGATIVE ng/mL (NEG <=2000); PHENCYCLIDINE SCREEN,URINE NEGATIVE ng/mL (NEG <=25)
--- NOTE | 2017-10-20 02:30 | NUR ---
PT SLEEPING BUT AROUSABLE. NO S/S OF ACUTE DISTRESS. NO SEIZURE ACTIVITY NOTED. SAFETY AND SEIZURE PRECAUTION IN PLACE. CALL LIGHT WITHIN REACH.
[2017-10-20 04:00] VITALS: BP 145/44
--- NOTE | 2017-10-20 04:19 | NUR ---
DR. VEGA MADE AWARE OF PT'S BP 145/44. NO S/S OF DISTRESS.
--- NOTE | 2017-10-20 07:25 | NUR ---
ENDORSED PT TO DAY SHIFT NURSE. PT IN STABLE CONDITION.
--- NOTE | 2017-10-20 07:26 | NUR ---
PATIENT LYING IN BED SLEEPING, AROUSABLE BY VOICE. NO DISTRESS NOTED. DENIES ANY PAIN. RESPIRATIONS EVEN, UNLABORED, ON ROOM AIR. AAOX4, CALM, COOPERATIVE, SKIN COLOR APPROPRIATE TO ETHNICITY, WARM TO TOUCH. SKIN IS INTACT THROUGHOUT BODY. LUNGS CTA ON ALL LOBES. ABDOMEN SOFT, NON-DISTENDED. IV SITE INTACT, PATENT, AND INFUSING IVF PER ORDERS. ASTUDILLO CATHETER IN PLACE DRAINING CLEAR, YELLOW URINE. REVIEWED PLAN OF CARE WITH PATIENT. PATIENT VERBALIZED UNDERSTANDING. SAFETY MEASURES IN PLACE, CALL LIGHT WITHIN REACH. WILL CONTINUE TO MONITOR.
[2017-10-20 08:00] VITALS: BP 113/76
[2017-10-20] MEDS ORDERED: HEPARIN PER PHARMACY MC PRN (08:20)
[2017-10-20] MEDS ORDERED: hePARIN / DEXT 5% PREMIX 250 ML IV SCH ×2 (08:20→09:00)
[2017-10-20] MEDS ORDERED: DOCUSATE SODIUM 100 MG GELCAP PO SCH (09:00)
--- NOTE | 2017-10-20 09:21 | NUR ---
PATIENT HAS BEEN SCREENED AND CATEGORIZED MODERATE NUTRITION RISK. PATIENT WILL BE SEEN WITHIN 3-5 DAYS OF ADMISSION. 10/21/17-10/23/[address]
--- NOTE | 2017-10-20 09:30 | NUR ---
PATIENT SITTING DOWN IN BED. NO DISTRESS NOTED. DENIES ANY PAIN AT THIS TIME. AAOX4, CALM, COOPERATIVE, WANTS TO GO HOME. ABLE TO AMBULATE. MD AT BEDSIDE REVIEWING PLAN OF CARE WITH PATIENT. ASTUDILLO CATHETER REMOVED PER MD ORDERS. SAFETY MEASURES IN PLACE, CALL LIGHT WITHIN REACH. WILL CONTINUE TO MONITOR.
--- NOTE | 2017-10-20 10:20 | NUR ---
PATIENT WISHES TO LEAVE AMA DESPITE RISKS OF LEAVING AMA EXPLAINED TO HIM BY MD AND NURSE. PATIENT REPORT FEELING BETTER AND IS AAOX4. DR. CHANCE AWARE OF AMA. ALL BELONGINGS WITH PATIENT. IV SITE REMOVED WITH MINIMAL BLOOD AND LUMEN COMPLETELY INTACT. ID BANDS REMOVED. AWAITING FOR PATIENT'S FRIEND TO ARRIVE TO TAKE PATIENT HOME VIA PRIVATE VEHICLE.
--- NOTE | 2017-10-20 10:20 | NUR ---
UNABLE TO PROCEED WITH EKG PER DOROTEO/RN PATIENT SIGNED OUT AMA DR. TRENTON CHANCE AWARE
--- NOTE | 2017-10-20 10:30 | NUR ---
PATIENT'S FRIEND ARRIVED AT HOSPITAL TO TAKE PATIENT HOME VIA PRIVATE VEHICLE. ALL BELONGINGS WITH PATIENT. PATIENT ALREADY SIGNED AMA PAPERS AND MD AWARE. ESCORTED PATIENT DOWN TO LOBBY VIA AMBULATION WITH STEADY GAIT. PATIENT LEFT AMA AT THIS TIME IN STABLE CONDITION.
== END 2017-10-20 10:30 | disposition left against medical advice (07) | DRG 812 ==
LOC: MED 17:45 → MTU 23:38
PROVIDERS: ADMIT Family Medicine; ATTEND Family Medicine
DX: T43.621A Poisoning by amphetamines, accidental (unintentional), initial encounter (principal); G92 Toxic encephalopathy; F32.9 Major depressive disorder, single episode, unspecified; F15.10 Other stimulant abuse, uncomplicated; F41.9 Anxiety disorder, unspecified; E87.6 Hypokalemia; G40.909 Epilepsy, unspecified, not intractable, without status epilepticus; R74.0 Nonspecific elevation of levels of transaminase and lactic acid dehydrogenase [LDH]; R44.1 Visual hallucinations; F10.10 Alcohol abuse, uncomplicated; E11.9 Type 2 diabetes mellitus without complications; Y90.9 Presence of alcohol in blood, level not specified; G89.29 Other chronic pain; M54.9 Dorsalgia, unspecified; E78.5 Hyperlipidemia, unspecified; R79.89 Other specified abnormal findings of blood chemistry; E78.00 Pure hypercholesterolemia, unspecified; Z53.21 Procedure and treatment not carried out due to patient leaving prior to being seen by health care provider; E66.3 Overweight; Z68.26 Body mass index [BMI] 26.0-26.9, adult; Y92.89 Other specified places as the place of occurrence of the external cause
CPT/HCPCS: 36415; 70450; 71045; 80053; 80305; 82140; 82150; 82948; 83036; 83690; 83735; 83880; 84100; 84439; 84443; 84484; 85025; 85610; 85730; 87081; 93005; 96365; 96372; 96375; 99291; C1758; G0482; J1630; J2060; J3480; Q0092

== ENCOUNTER 2019-01-12 22:04 | Emergency (ER) | payer MEDICAID, OTHER ==
[~2019-01-12] VITALS: Ht 175.3 cm; Wt 72.6 kg
[2019-01-12 22:05] VITALS: BP 118/96
[2019-01-12 22:31] LABS: BASOPHILS % (AUTO) 0.3 % (0.0-2.0); HEMATOCRIT 44.5 % (36-52); HEMOGLOBIN 15.2 g/dL (12.0-18.0); LYMPHOCYTES # (AUTO) 1.3 K/uL (2.0-11.5); LYMPHOCYTES % (AUTO) 9.7 % (20.5-51.1); MEAN CORPUSCULAR HEMOGLOBIN 29 pg (27-31); MEAN CORPUSCULAR HGB CONC 34 g/dL (33-37); MEAN CORPUSCULAR VOLUME 86.2 fL (80-94); MONOCYTES # (AUTO) 1.1 K/uL (0.8-1.0); MONOCYTES % (AUTO) 8.5 % (1.7-9.3); NEUTROPHILS # (AUTO) 10.8 K/uL (1.8-7.7); NEUTROPHILS % (AUTO) 81.5 % (42.2-75.2); PLATELET COUNT (AUTO) 323 K/uL (140-450); RED BLOOD CELL COUNT(AUTO) 5.17 MIL/uL (4.20-6.10); RED CELL DISTRIBUTION WIDTH 14.5 % (11.6-13.7); WHITE BLOOD COUNT (AUTO) 13.3 K/uL (4.8-10.8)
--- NOTE | 2019-01-12 22:35 | NUR ---
PT TO EMERGENCY DEPT VIA EMS FOR C/O ALOC AND SUBSTANCE ABUSE. PER EMS PT REPORTED USING METH. PT SPEECH IS RAPID AND REPETITIVE AND HAS ERRATIC BEHAVIOR AND BODY MOVEMENT. PT ABLE TO ANSWER QUESTIONS APPROPRIATLEY WHEN ASKED. ER MD AT BEDSIDE. PT IN BED, BEDRAILS UP.
[2019-01-12 22:44] LABS: ANION GAP 14.3 (8-16); CARBON DIOXIDE 25.3 mmol/L (21-32); POTASSIUM 3.6 mmol/L (3.5-5.1)
--- NOTE | 2019-01-12 22:45 | NUR ---
PT STATING "THERE IS A DOG BITING MY EAR, THERE IS A DOG IN MY EAR" INFORMED PT HE WAS IN THE HOSPITAL AND THAT THERE WAS NO DOG IN THE ROOM.
[2019-01-12 22:50] LABS: PROTHROMBIN TIME 10.4 secs (10.8-13.4)
[2019-01-12 22:51] LABS: ALBUMIN 3.7 g/dL (3.4-5.0); TOTAL BILIRUBIN 0.6 mg/dL (0.0-1.0)
--- NOTE | 2019-01-12 22:52 | NUR ---
PT TO CT VIA GURMACKENZIE WITH REGIONAL BUSINESS MANAGER AND EMT.
[2019-01-12 22:57] LABS: APPEARANCE,URINE CLEAR (CLEAR); BILIRUBIN,URINE NEGATIVE (NEGATIVE); BLOOD, URINE NEGATIVE (NEGATIVE); COLOR,URINE YELLOW (YELLOW); LEUKOCYTE ESTERASE ,URINE NEGATIVE (NEGATIVE); NITRITE, URINE NEGATIVE (NEGATIVE); UGLUCOSE NEGATIVE (NEGATIVE)
[2019-01-12 23:05] LABS: BARBITURATE, URINE NEG. ng/ml (NEG <=200); BENZODIAZEPINE, URINE NEG. ng/mL (NEG <=200); CANNABINOID, URINE NEG. ng/mL (NEG <=50); COCAINE, URINE NEG. ng/mL (NEG <=300); OPIATE, URINE NEG. ng/mL (NEG <=2000); PHENCYCLIDINE SCREEN,URINE NEG. ng/mL (NEG <=25)
[2019-01-12 23:11] LABS: WBC,URINE 0-5 /HPF (0-5)
[2019-01-12 23:12] LABS: SALICYLATE 4.1 mg/dL (2.8-20.0); THYROID STIMULATING HORMONE 0.87 uIU/mL (0.34-3.74)
[2019-01-12 23:13] LABS: ACETAMINOPHEN < 0.5 ug/ml (10-30); CKMB RELATIVE INDEX 1.1 (0.0-2.5); CREATINE KINASE MB 7.5 ng/mL (0-3.6)
--- NOTE | 2019-01-13 00:37 | NUR ---
PT IN BED, CONTINUING TO TALK TO HIMSELF. WILL CONTINUE TO REORIENT PATIENT.
--- NOTE | 2019-01-13 01:05 | NUR ---
PT NOW ALERT AND ABLE TO ANSWER QUESTIONS. PER PT "I JUST WANT TO SLEEP". ER MD AWARE.
--- NOTE | 2019-01-13 03:45 | NUR ---
PT SLEEPING. ALERT TO VOICE. WILL CONTINUE TO MONITOR.
--- NOTE | 2019-01-13 04:05 | NUR ---
PT AWAKE. ABLE TO AMBULATE WITHOUT ASSIST. ABLE TO DRESS SELF. ER MD AT BEDSIDE.
--- NOTE | 2019-01-13 04:06 | NUR ---
IV removed, catheter intact and site benign. Applied folded 4x4 gauze and tape to stop bleeding.
--- NOTE | 2019-01-13 04:09 | NUR ---
PT LEFT FACILITY WITHOUT D/C INSTRUCTIONS.
[2019-01-13 04:10] VITALS: BP 111/59
== END 2019-01-13 04:10 | disposition home or self-care (01) ==
LOC: MED 22:04
DX: R41.82 Altered mental status, unspecified (principal); F15.129 Other stimulant abuse with intoxication, unspecified; Z79.899 Other long term (current) drug therapy
CPT/HCPCS: 36415; 36600; 70450; 71045; 80053; 80305; 81001; 82140; 82550; 82553; 82803; 83605; 83880; 84443; 84484; 85025; 85610; 85730; 87040; 87086; 93005; 99284; G0480; G0482

== ENCOUNTER 2020-01-04 11:13 | Emergency (ER) | payer OTHER ==
[~2020-01-04] VITALS: Ht 175.3 cm; Wt 81.6 kg
--- NOTE | 2020-01-04 11:14 | NUR ---
PT KHANG ALS TO ER BED 4
[2020-01-04 11:17] VITALS: BP 132/85
[2020-01-04] MEDS ORDERED: LORazepam 2 MG/ML VIAL IVP ONE ×3 (11:20→12:10)
--- NOTE | 2020-01-04 11:22 | NUR ---
Pt [facility] area due to admits to meth use. Pt is excessive & diaphoretic but unable to remain still or quiet. Generalized musle spasm/shakings noticed upon assessment. Pt is A&OX1. PATIENT DENIES HAVING ANY PAIN AT THIS TIME; VSS; PATIENT POSITIONED FOR COMFORT; HOB ELEVATED; BEDRAILS UP X2; BED DOWN. ER MD MADE AWARE OF PT STATUS.
[2020-01-04] MEDS ORDERED: LORazepam 2 MG/ML VIAL IM ONE (11:55)
--- NOTE | 2020-01-04 12:18 | NUR ---
PT CAN FOLLOW COMMANDS AND REMAIN QUIET AND STILL AT THIS TIME. PT TAKEN TO CT SCAN VIA GURNEY ASSISTED BY AUTOMOTIVE GENERAL SALES MANAGER.
--- NOTE | 2020-01-04 12:24 | NUR ---
PT RETURNED FROM CT
--- NOTE | 2020-01-04 12:57 | NUR ---
PT IS SLEEPING IN THE BED QUIETLY. VSS SHOWED ON THE MONITOR.
--- NOTE | 2020-01-04 14:27 | NUR ---
PT IS SLEEPING IN THE BED QUIETLY. VSS SHOWED ON THE MONITOR.
--- NOTE | 2020-01-04 15:45 | NUR ---
PT IS SLEEPING IN THE BED QUIETLY. VSS SHOWED ON THE MONITOR.
[2020-01-04] MEDS ORDERED: LORazepam 2 MG/ML VIAL ONE (16:39)
[2020-01-04 17:12] LABS: BASOPHILS # (AUTO) 0.1 K/uL (0.00-0.22); HEMOGLOBIN 15.3 g/dL (12.0-18.0); LYMPHOCYTES # (AUTO) 1.9 K/uL (2.0-11.5); LYMPHOCYTES % (AUTO) 21.9 % (20.5-51.1); MEAN CORPUSCULAR HEMOGLOBIN 29 pg (27-31); MEAN CORPUSCULAR HGB CONC 34 g/dL (33-37); MEAN CORPUSCULAR VOLUME 85.4 fL (80-94); MONOCYTES # (AUTO) 0.7 K/uL (0.8-1.0); MONOCYTES % (AUTO) 7.9 % (1.7-9.3); NEUTROPHILS % (AUTO) 69.2 % (42.2-75.2); PLATELET COUNT (AUTO) 335 K/uL (140-450); RED BLOOD CELL COUNT(AUTO) 5.27 MIL/uL (4.20-6.10); RED CELL DISTRIBUTION WIDTH 14.4 % (11.6-13.7); WHITE BLOOD COUNT (AUTO) 8.7 K/uL (4.8-10.8)
[2020-01-04 17:34] LABS: ALBUMIN 3.6 g/dL (3.4-5.0); ANION GAP 16.9 (8-16); ASPARTATE AMINOTRANSFERASE 72 U/L (15-37); CARBON DIOXIDE 24.6 mmol/L (21-32); CHLORIDE 106 mmol/L (98-107); CREATININE 1.3 mg/dL (0.6-1.3); GFR ARICAN-AMERICAN 74 mL/min (>90); GLUCOSE 100 mg/dL (74-106); POTASSIUM 3.5 mmol/L (3.5-5.1); SODIUM SERUM 144 mmol/L (136-145); UREA NITROGEN, BLOOD 25 mg/dL (7-18)
[2020-01-04 17:51] LABS: APPEARANCE,URINE HAZY (CLEAR); BILIRUBIN,URINE 2+ (NEGATIVE); BLOOD, URINE NEGATIVE (NEGATIVE); COLOR,URINE ORANGE (YELLOW); LEUKOCYTE ESTERASE ,URINE NEGATIVE (NEGATIVE); NITRITE, URINE NEGATIVE (NEGATIVE); UGLUCOSE NEGATIVE (NEGATIVE)
[2020-01-04 17:57] VITALS: BP 110/81
--- NOTE | 2020-01-04 17:57 | NUR ---
Patient discharged with v/s stable. Written and verbal after care instructions given and explained. Patient verbalized understanding. Ambulatory with steady gait. All questions addressed prior to discharge. Advised to follow up with PMD.
[2020-01-04 17:59] LABS: CKMB RELATIVE INDEX 0.3 (0.0-2.5); CREATINE KINASE MB 2.5 ng/mL (0-3.6)
[2020-01-04 18:03] LABS: BARBITURATE, URINE NEGATIVE ng/ml (NEG <=200); BENZODIAZEPINE, URINE POSITIVE ng/mL (NEG <=200); CANNABINOID, URINE NEGATIVE ng/mL (NEG <=50); COCAINE, URINE NEGATIVE ng/mL (NEG <=300); OPIATE, URINE NEGATIVE ng/mL (NEG <=2000); PHENCYCLIDINE SCREEN,URINE NEGATIVE ng/mL (NEG <=25)
== END 2020-01-04 17:56 | disposition home or self-care (01) ==
LOC: MED 11:13
DX: T43.621A Poisoning by amphetamines, accidental (unintentional), initial encounter (principal); R41.82 Altered mental status, unspecified; R00.0 Tachycardia, unspecified; Y92.89 Other specified places as the place of occurrence of the external cause
CPT/HCPCS: 36415; 70450; 80053; 80305; 81003; 82550; 82553; 85025; 96372; 96374; 96376; 99285; G0482; J2060

== ENCOUNTER 2020-01-05 07:00 | Emergency (ER) | payer OTHER ==
[~2020-01-05] VITALS: Ht 172.7 cm; Wt 72.6 kg
[2020-01-05 07:20] VITALS: BP 136/91
--- NOTE | 2020-01-05 07:24 | NUR ---
PT AMBULATED TO ER BED 11
--- NOTE | 2020-01-05 07:28 | NUR ---
ERMD BEDSIDE EVALUATING PT
[2020-01-05] MEDS ORDERED: LORazepam 2 MG/ML VIAL IM ONE (07:30)
--- NOTE | 2020-01-05 07:40 | NUR ---
PT PRESENTED IN ED C/O ANXIETY / HALLUCINATIONS X1 DAY. PT ADMITS TO USING METH YESTERDAY AND STATES HX OF ANXIETY AND DEPRESSION BUT HAS NOT BEEN COMPLIANT WITH MEDS FOR UNKNOWN AMOUNT OF TIME. DENIES SI / HI. BED IN LOW POSTION, SIDE RAIL X1.
[2020-01-05 08:06] VITALS: BP 136/91
== END 2020-01-05 08:07 | disposition home or self-care (01) ==
LOC: MED 07:00
DX: F41.0 Panic disorder [episodic paroxysmal anxiety] (principal); F15.10 Other stimulant abuse, uncomplicated; Z79.899 Other long term (current) drug therapy
CPT/HCPCS: 96372; 99283; J2060

== ENCOUNTER 2020-02-01 09:25 | Emergency (ER) | payer OTHER ==
[~2020-02-01] VITALS: Ht 175.3 cm; Wt 74.8 kg
[2020-02-01 09:25] VITALS: BP 137/95
--- NOTE | 2020-02-01 09:25 | NUR ---
Patient BIBA BLS, transferred to bed 4. RN evaluating patient at bedside.
--- NOTE | 2020-02-01 09:26 | NUR ---
Dr. Savage is evaluating the patient at bedside.
[2020-02-01] MEDS ORDERED: LORazepam 2 MG/ML VIAL ONE (09:29)
[2020-02-01] MEDS ORDERED: NACL 0.9% 1,000 ML IV ONE (09:35)
--- NOTE | 2020-02-01 09:47 | NUR ---
BROUGHT IN BY EMS---PT SHAKING, HYPERVERBAL, PARANOIA--FREQUEN REDIRECTION ADMITS TO METHAMPHETAMINE ABUSE
[2020-02-01] MEDS ORDERED: LORazepam 2 MG/ML VIAL IVP ONE (09:50)
--- NOTE | 2020-02-01 09:52 | NUR ---
LABS COLLECTED AND RECEIVED BY LAB---CXR AT BEDSIDE PT HAS SETTLED DOWN, NO MORE SHAKING OR VERBALIZING
[2020-02-01 10:01] LABS: BASOPHILS # (AUTO) 0.1 K/uL (0.00-0.22); BASOPHILS % (AUTO) 1.6 % (0.0-2.0); EOSINOPHILS % (AUTO) 0.1 % (0.0-4.0); HEMATOCRIT 39.7 % (36-52); HEMOGLOBIN 13.4 g/dL (12.0-18.0); LYMPHOCYTES # (AUTO) 1.4 K/uL (2.0-11.5); LYMPHOCYTES % (AUTO) 26.3 % (20.5-51.1); MEAN CORPUSCULAR HEMOGLOBIN 29 pg (27-31); MEAN CORPUSCULAR HGB CONC 34 g/dL (33-37); MEAN CORPUSCULAR VOLUME 85.2 fL (80-94); MONOCYTES # (AUTO) 0.5 K/uL (0.8-1.0); MONOCYTES % (AUTO) 9.7 % (1.7-9.3); NEUTROPHILS # (AUTO) 3.4 K/uL (1.8-7.7); NEUTROPHILS % (AUTO) 62.3 % (42.2-75.2); PLATELET COUNT (AUTO) 477 K/uL (140-450); RED BLOOD CELL COUNT(AUTO) 4.67 MIL/uL (4.20-6.10); RED CELL DISTRIBUTION WIDTH 15.1 % (11.6-13.7); WHITE BLOOD COUNT (AUTO) 5.5 K/uL (4.8-10.8)
[2020-02-01 10:32] LABS: PROTHROMBIN TIME 11.7 secs (10.8-13.4)
[2020-02-01 10:59] LABS: ANION GAP 15.9 (8-16); CARBON DIOXIDE 25.4 mmol/L (21-32); POTASSIUM 3.3 mmol/L (3.5-5.1)
[2020-02-01 11:00] LABS: CREATININE 1.1 mg/dL (0.6-1.3)
--- NOTE | 2020-02-01 13:14 | NUR ---
Patient appears to be resting in bed. Vital Signs within normal limits. Respirations even and unlabored.
--- NOTE | 2020-02-01 15:09 | NUR ---
REMAINS RESTING OU CLOSED NO S/S RESP DISTRESS----PT LAYING ON LEFT SIDE WILL CONTINUE TO OBSERVE FOR CHANGES
--- NOTE | 2020-02-01 15:53 | NUR ---
PT REPOSITIONED UP IN [facility]---IV DC'D------LUNCH MEAL PROVIDED
--- NOTE | 2020-02-01 16:33 | NUR ---
PT'S FAMILY KAREY SPOKE WITH DAVID REQUESTING REFERRAL FOR INPATIENT SUBSTANCE ABUSE LIST---MD AND I SPOKE WITH PT AT LENGTH EXPLAINING WE DO NOT REFER PT'S INPATIENT FOR SUBSTANCE ABUSE---- PT OR FAMILY CAN ALL AND ARRANGE ON THEIR OWN. A COPY OF CXR AND LABS HANDED TO PT. GLENN PRAKASHHOME [employer] EXPERT AWARE AND HOUSE SUP
[2020-02-01 16:40] VITALS: BP 133/88
== END 2020-02-01 16:41 | disposition home or self-care (01) ==
LOC: MED 09:25
DX: T43.625A Adverse effect of amphetamines, initial encounter (principal); F15.129 Other stimulant abuse with intoxication, unspecified; I51.89 Other ill-defined heart diseases; Z79.899 Other long term (current) drug therapy; Y92.9 Unspecified place or not applicable
CPT/HCPCS: 36415; 71045; 80048; 84484; 85025; 85610; 93005; 96374; 99285; J2060; J7030; Q0092

== ENCOUNTER 2021-05-23 16:03 | Emergency (ER) | payer OTHER ==
[~2021-05-23] VITALS: Ht 175.3 cm; Wt 83.9 kg
[2021-05-23 16:08] VITALS: BP 122/67
--- NOTE | 2021-05-23 16:14 | NUR ---
55 Y/O MALE BIBA C/O ACCIDENTAL OVERDOSE FROM HOME. PER EMS PT HAS PERSCRIPTION OF OXYCODONE 10 MG AND 30 MG. TOOK 210 MG OF OXYCODONE TOTAL. STATES 6/10 BACK NUMBNESS PAIN. PT HAS TREMORS. WAS GIVEN 8 MG NARCAN MEDHX: METH ABUSE, CABG, PACEMAKER, 2 HEART ATTACKS NKA
--- NOTE | 2021-05-23 16:21 | NUR ---
DR COOLEY AT BEDSIDE EVALUATING PT
--- NOTE | 2021-05-23 16:33 | NUR ---
Note undone in EDM - 05/23/21 at 1640 by [email or web address] Patient discharged with v/s stable. Written and verbal after care instructions given and explained to parent/guardian. Parent/Guardian verbalized understanding of instructions. Carried with by parent. All questions addressed prior to discharge. ID band removed. Parent/Guardian advised to follow up with PMD. Opportunity to ask questions provided and answered.
--- NOTE | 2021-05-23 17:30 | NUR ---
PT REQUESTING FOR WATER, PER ERMD OKAY TO GIVE
[2021-05-23 18:47] VITALS: BP 102/55
--- NOTE | 2021-05-23 18:47 | NUR ---
Patient discharged with v/s stable. Written and verbal after care instructions given and explained. Patient alert, oriented and verbalized understanding of instructions. Ambulatory with steady gait. All questions addressed prior to discharge. ID band removed. Patient advised to follow up with PMD. Opportunity to ask questions provided and answered.
== END 2021-05-23 18:47 | disposition home or self-care (01) ==
LOC: MED 16:03
DX: T40.2X1A Poisoning by other opioids, accidental (unintentional), initial encounter (principal); I10 Essential (primary) hypertension; F15.90 Other stimulant use, unspecified, uncomplicated; Z95.0 Presence of cardiac pacemaker; Z95.1 Presence of aortocoronary bypass graft; Z98.890 Other specified postprocedural states; Z79.899 Other long term (current) drug therapy; Y92.89 Other specified places as the place of occurrence of the external cause
CPT/HCPCS: 81002; 99283